=== PATIENT | female | born 1945 | race Caucasian/White ===

== ENCOUNTER 2020-06-14 11:55 | Day surgery (SDC) | payer MEDICARE, BC ==
[~2020-06-14] VITALS: Ht 170.2 cm; Wt 68.1 kg
[2020-06-14] VITALS (12 sets, daily range): BP systolic 133–157; BP diastolic 61–95
[~2020-06-14 11:55] MED LIST: BENA20TA82 PO; CARSR60C PO; CHOL200035 PO; CLOP75TA35 PO; HCTZ25T PO; ISOS30TA9 PO; METO50TA16 PO; SYN0.025T PO; UBID30CA11 PO; ZET10T PO
[2020-06-14] MEDS ORDERED: normal saline 1,000 ML IV SCH (12:25)
[2020-06-14] MEDS ORDERED: nitroGLYCERIN 0.4mg SUBLingual tab SL PRN ×2 (12:25→15:05)
[2020-06-14] MEDS ORDERED: diphenhydrAMINE 25mg capsule PO PRN (12:25)
[2020-06-14] MEDS ORDERED: LORazepam 0.5 MG tablet PO PRN (12:25)
[2020-06-14] MEDS ORDERED: midazolam 2 mg/2 ml injection ONE ×2 (13:14→14:02)
[2020-06-14] MEDS ORDERED: fentaNYL/PF 50MCG/1 ML 2ML syringe ONE (13:15)
[2020-06-14] MEDS ORDERED: iohexol 350 MG/ML 50ML vial IV ONE ×2 (13:15→14:16)
[2020-06-14] MEDS ORDERED: LIDOcaine 1% (10mg/ml)w/preservative injection 20ml MDV ONE (13:15)
[2020-06-14] MEDS ORDERED: iohexol 350MG/ML 100ml bottle IV ONE (13:15)
[2020-06-14] MEDS ORDERED: BENA40TA73 PO (13:50)
[2020-06-14] MEDS ORDERED: NITR100C PO (13:50)
[2020-06-14] MEDS ORDERED: ASPI-611 PO (13:50)
[2020-06-14] MEDS ORDERED: METO25TA6 PO (13:50)
[2020-06-14] MEDS ORDERED: LEVO25TA2 PO (13:50)
[2020-06-14] MEDS ORDERED: ANAS1TAB24 PO (13:51)
[2020-06-14] MEDS ORDERED: proCHLORperazine 10 MG/2 ml inj IV PRN (15:05)
[2020-06-14] MEDS ORDERED: OXAZEpam 15mg capsule PO PRN (15:05)
[2020-06-14] MEDS ORDERED: HYDROcodone/acetaminophen 10/325mg tab PO PRN (15:05)
[2020-06-14] MEDS ORDERED: normal saline 1000ml 1,000 ML IV SCH (15:05)
[2020-06-14] MEDS ORDERED: HYDROcodone/acetaminophen 5mg/325mg tablet PO PRN (15:05)
[2020-06-14] MEDS ORDERED: ondansetron/PF 4mg/2ml inj IV PRN (15:05)
== END 2020-06-14 20:30 | disposition home or self-care (01) ==
LOC: SSTAY O 11:55
PROVIDERS: ATTEND Internal Medicine Cardiovascular Disease
DX: R94.39 Abnormal result of other cardiovascular function study (principal); I47.2 Ventricular tachycardia; T82.855A Stenosis of coronary artery stent, initial encounter; I25.10 Atherosclerotic heart disease of native coronary artery without angina pectoris; I10 Essential (primary) hypertension; E78.5 Hyperlipidemia, unspecified; J44.9 Chronic obstructive pulmonary disease, unspecified; I25.2 Old myocardial infarction; Z85.3 Personal history of malignant neoplasm of breast; Z86.73 Personal history of transient ischemic attack (TIA), and cerebral infarction without residual deficits; Z88.8 Allergy status to other drugs, medicaments and biological substances; Z98.890 Other specified postprocedural states; Z95.5 Presence of coronary angioplasty implant and graft; Y83.8 Other surgical procedures as the cause of abnormal reaction of the patient, or of later complication, without mention of misadventure at the time of the procedure; Y92.89 Other specified places as the place of occurrence of the external cause
CPT/HCPCS: 93458; 99152; 99153; C1760; C1769; J1644; J2001; J2250; J3010; J7030; Q0163; Q9967; A4620; A6258